=== PATIENT | female | born 1950 | race Asian ===

== ENCOUNTER 2025-03-17 11:22 | Outpatient (CLI) | payer MEDICARE, OTHER ==
--- NOTE | 2025-03-17 12:33 | RADIOLOGY REPORT ---
EXAM: DI CHEST,TWO VIEWS CLINICAL HISTORY: COUGH, UNSPECIFIED TECHNIQUE: PA and lateral views of the chest WID: COMPARISON: None FINDINGS: Lines and tubes: None Chest: The heart size and pulmonary vasculature is within normal limits. Right middle lobe consolidation. No pleural effusion or pneumothorax. The osseous structures are grossly intact. IMPRESSION: Right middle lobe consolidation which could reflect pneumonia. Follow-up 2-view chest radiograph or C T chest after appropriate course of medical therapy within 3 months recommended for re-evaluation.
== END 2025-03-17 23:59 | disposition home or self-care (01) ==
LOC: RAD 11:22
PROVIDERS: ATTEND Physician Assistant
DX: J18.9 Pneumonia, unspecified organism (principal); R05.9 Cough, unspecified
CPT/HCPCS: 71046